=== PATIENT | male | born 2000 | race Caucasian/White ===

== ENCOUNTER 2022-10-25 19:21 | Emergency (ER) | payer SELFPAY ==
[~2022-10-25] VITALS: Ht 172.7 cm; Wt 61.2 kg
[~2022-10-25 19:21] MED LIST: ALEVE220 M1; AMOXICILLIN500 MG PO; CLINDAMYCIN150 MG PO; GARDASIL IM; HAVRIX720 UNI1 IM; MUPIROCIN2 % EX; SULFACET SOD10 % OP; TESSALON PER100 MG PO; TET/DIP TOX1 ML IM; TYLENOL120 MG; VARIVAX SC; VIGAMOX OD
[2022-10-25 21:06] VITALS: BP 121/80
[2022-10-25 21:15] VITALS: BP 113/76
[2022-10-25 21:30] VITALS: BP 109/70
[2022-10-25 21:45] VITALS: BP 111/57
[2022-10-25] MEDS ORDERED: ULTRAM50 MG PO (21:45)
[2022-10-25 22:00] VITALS: BP 96/66
[2022-10-25 22:33] VITALS: BP 96/66
== END 2022-10-25 22:35 | disposition home or self-care (01) | DRG 563 ==
LOC: ED 19:21
PROC: 2W3EX1Z Immobilization of Right Hand using Splint (ICD-10-PCS; principal; 2022-10-25)
DX: S62.316A Displaced fracture of base of fifth metacarpal bone, right hand, initial encounter for closed fracture (principal); W22.09XA Striking against other stationary object, initial encounter